=== PATIENT | female | born 1985 | race Caucasian/White ===

== ENCOUNTER 2019-10-11 12:33 | Emergency (ER) | payer BC ==
--- NOTE | 2019-10-11 12:42 | ED Physician Documentation ---
PD HPI LOWER EXT INJURY - Stated complaint Stated Complaint: LT FOOT PX - History obtained from History obtained from: Patient (She was doing a lot of box jumps and some running a few days ago when developed otherwise atraumatic pain in the distal second and third metatarsals with difficulty walking. No specific injury.) Review of Systems Constitutional: reports: Reviewed and negative Cardiac: reports: Reviewed and negative Respiratory: reports: Reviewed and negative PD PAST MEDICAL HISTORY - Allergies Allergies/Adverse Reactions: Allergies Allergy/AdvReac Type Severity Reaction Status Date / Time No Known Drug Allergies Allergy Verified 10/11/19 12:48 PD ED PE NORMAL - Vitals Vital signs reviewed: Yes - General General: Alert and oriented X 3, No acute distress - Extremities Extremities: Other (Left foot is without obvious deformity or ecchymosis. She is mildly tender at the distal second more than third metatarsals. She has pain with flexion of the second more than third toes and more so with extension of the second more than third toes.) - Neuro Neuro: Alert and oriented X 3, Normal speech Results - Vitals Vitals: Vital Signs - 24 hr 10/11/19 12:46 Temperature 36.4 C L Heart Rate 48 L Respiratory 16 Rate Blood Pressure 141/67 H O2 Saturation 100 Oxygen O2 Source Room air - Rads (name of study) L foot XR Radiology: EMP read contemporaneously (neg) Departure - Departure Disposition: 01 Home, Self Care Clinical Impression: Sprain of left foot Qualifiers: Encounter type: initial encounter Qualified Code(s): S93.602A - Unspecified sprain of left foot, initial encounter Condition: Good Record reviewed to determine appropriate education?: Yes Instructions: ED Sprain Foot Comments: Tylenol or ibuprofen as needed for pain, follow-up with the sports medicine physician or legal cashier on return home in a week if not better. Discharge Date/Time: 10/11/19 13:42
[2019-10-11 12:55] VITALS: BP 141/67
--- NOTE | 2019-10-11 13:25 | XRAY Report ---
Reason: Left foot pain, focus on distal second metatarsal Procedure Date: 10/11/2019 Accession Number: [id number] / [id number] Procedure: XR - Foot 3 View LT CPT Code: Final Report FULL RESULT: EXAM: LEFT FOOT RADIOGRAPHY EXAM DATE: 10/11/2019 01:07 PM. CLINICAL HISTORY: Left foot pain, localized to the distal aspect of the left second metatarsal bone. COMPARISON: None. TECHNIQUE: 3 views. FINDINGS: Bones: Normal bone mineralization. No fracture or focal bone lesion. Joints: Normal. No subluxations. Soft Tissues: Normal. No soft tissue swelling. IMPRESSION: Normal left foot radiography. [facility]
== END 2019-10-11 13:42 | disposition home or self-care (01) ==
LOC: ED 12:33
DX: S93.505A Unspecified sprain of left lesser toe(s), initial encounter (principal); X58.XXXA Exposure to other specified factors, initial encounter; Y93.39 Activity, other involving climbing, rappelling and jumping off
CPT/HCPCS: 99282; 99283